=== PATIENT | female | born 1970 | race American Indian/Alaskan Native ===

== ENCOUNTER 2017-09-01 05:52 | Emergency (ER) | payer BC ==
[2017-09-01 06:01] VITALS: BP 126/79
[2017-09-01] MEDS ORDERED: MOTRIN PO ONE (07:47)
[2017-09-01] MEDS ORDERED: FLEXERIL PO ONE (07:47)
--- NOTE | 2017-09-01 07:58 | Emergency Department Report ---
HPI - General Chief Complaint: Extremity Injury, Lower Time Seen by Provider: 09/01/17 07:20 - HPI HPI: 47-year-old female with no prior medical history presents to the ED complaining of right lower anterior leg pain times one week. This is since she did not sustain any injuries to the leg or trauma. Patient just states it's been a cane for the past week. Patient denies any radiation elsewhere. Patient states is localized to her lower anterior leg. Patient denies fever, chills, nausea or vomiting, shortness of breath, difficulty walking, loss of sensation, calf pain. ED Past Medical Hx - Past Medical History Previous Medical History?: Yes Hx Hypertension: Yes - Surgical History Past Surgical History?: Yes Additional Surgical History: , Carpel tunnel amy - Social History Smoking Status: Never Smoker Substance Use Type: None - Medications Home Medications: Home Medications Medication Instructions Recorded Confirmed Last Taken Type Amoxicillin [Amoxicillin TAB] 875 mg PO BID #14 tablet 10/12/14 Unknown Rx Fluticasone [Flonase] 1 spray NS QDAY #1 bottle 10/12/14 Unknown Rx Ibuprofen [Motrin] 600 mg PO Q8H PRN #30 tablet 10/12/14 Unknown Rx traMADol [Ultram] 50 mg PO Q6HR PRN #20 tablet 08/16/15 Unknown Rx Diclofenac Sodium 75 mg PO BID PRN #20 tablet. 06/15/16 Unknown Rx Doxycycline [Vibramycin CAP] 100 mg PO Q12HR #20 capsule 06/15/16 Unknown Rx Cyclobenzaprine [Flexeril 10 MG 10 mg PO QHS #20 tablet 09/01/17 Unknown Rx TAB] Meloxicam [Mobic] 7.5 mg PO QDAY #30 tablet 09/01/17 Unknown Rx ED Review of Systems ROS: Stated complaint: RIGHT LEG PAIN Other details as noted in HPI Constitutional: denies: chills, fever Eyes: denies: eye pain, eye discharge, vision change ENT: denies: ear pain, throat pain Respiratory: denies: cough, shortness of breath, wheezing Cardiovascular: denies: chest pain, palpitations Endocrine: no symptoms reported Gastrointestinal: denies: abdominal pain, nausea, diarrhea Genitourinary: denies: urgency, dysuria, discharge Musculoskeletal: denies: back pain, joint swelling, arthralgia Skin: denies: rash, lesions Neurological: denies: headache, weakness, paresthesias Psychiatric: denies: anxiety, depression Hematological/Lymphatic: denies: easy bleeding, easy bruising Physical Exam - Physical Exam Vital Signs: Vital Signs 09/01/17 09/01/17 05:54 06:32 Temperature 99.0 F 99.0 F Pulse Rate 88 89 Respiratory 18 17 Rate Blood Pressure 126/79 126/79 O2 Sat by Pulse 97 96 Oximetry Physical Exam: GENERAL: Alert and oriented x3, no apparent distress, Normal Gait, atraumatic. HEAD: Head is normocephalic and a-traumatic. LUNGS: Symetrical with respiration, No wheezing, no rales or crackles, CTAB. HEART: S1, S2 present, regular rate and rhythm without murmur, no rubs, no gallops. Non tender to palpation EXTREMITIES/MUSCULOSKELETAL: No cyanosis, clubbing, rash, lesions or edema. Full ROM bilaterally. UE/LE Pulses 2+ bilaterally. LE and UE 5+ strength bilaterally, straight leg raise negative bilaterally, Homans sign negative, calf was nontender to palpation. No erythema, no lesions, no swelling on any lower extremities bilaterally. NEUROLOGIC: The patient is cooperative with no focal neurologic deficits. Normal speech. Normal sensation in bilateral upper and lower extremities, No loss of sensation, No facial droop, PSYCHIATRIC: Mood is congruent with affect, denies suicidal or homicidal ideations. SKIN: Warm and dry, No lesions, No ulceration or induration present. ED Course Vital Signs 09/01/17 09/01/17 05:54 06:32 Temperature 99.0 F 99.0 F Pulse Rate 88 89 Respiratory 18 17 Rate Blood Pressure 126/79 126/79 O2 Sat by Pulse 97 96 Oximetry ED Medical Decision Making - Medical Decision Making 47-year-old female presents with right leg myalgia ED course: Patient received Motrinl and Flexeril in ED. Vital signs are normal patient is in no acute distress Discussed with patient follow-up with primary care physician. Discussed the patient and take medications as prescribed. Discussed patient as she has any worsening symptoms to return immediately to ED Patient has no neurological deficit. Patient is alert and oriented 3 and understands all instructions given. Discussed drowsiness effect of Flexeril makes her drowsy and not to operate machinery while taking flexeril Critical care attestation.: If time is entered above; I have spent that time in minutes in the direct care of this critically ill patient, excluding procedure time. ED Disposition Clinical Impression: Myalgia Muscle strain of right lower leg Qualifiers: Encounter type: initial encounter Qualified Code(s): S86.911A - Strain of unspecified muscle(s) and tendon(s) at lower leg level, right leg, initial encounter Disposition: TO HOME OR SELFCARE Is pt being admited?: No Does the pt Need Aspirin: No Condition: Stable Instructions: Trigger Point Pain (ED), Musculoskeletal Pain (ED), Muscle Strain (ED) Additional Instructions: Make sure to follow up with the primary care physician as discussed. Take all your medications as you've been prescribed. If you have any worsening symptoms or develop new symptoms please return to ED immediately. Prescriptions: Cyclobenzaprine [Flexeril 10 MG TAB] 10 mg PO QHS #20 tablet Meloxicam [Mobic] 7.5 mg PO QDAY #30 tablet Referrals: SUZANNE ONEILL MD [Primary Care Provider] - 3-5 Days GEORGES JNUE MD [Referring] - 3-5 Days LEONCIO GRANADOS MD [Referring] - 3-5 Days Forms: Work/School Release Form(ED) Time of Disposition: 08:08
== END 2017-09-01 08:25 | disposition home or self-care (01) ==
LOC: ED 05:52
DX: S86.911A Strain of unspecified muscle(s) and tendon(s) at lower leg level, right leg, initial encounter (principal); M79.1 Myalgia; I10 Essential (primary) hypertension; X58.XXXA Exposure to other specified factors, initial encounter; Y93.89 Activity, other specified; Y92.89 Other specified places as the place of occurrence of the external cause; Y99.8 Other external cause status
CPT/HCPCS: 99282